=== PATIENT | female | born 1985 | race Caucasian/White ===

== ENCOUNTER 2016-09-25 19:14 | Emergency (ER) | payer BC ==
--- NOTE | 2016-09-25 21:11 | ED ORDER SUMMARY ---
..... Patient: CY CURRAN OrderSheet [facility] VisitID: [id number] [address] [place] [address] 31y, F Registration Date/Time: 09/25/2016 ORDER SHEET Weight: 117.9 kg (stated) Allergies: No Known Drug Allergy GENERAL ORDERS: MEDICATION ORDERS: Vistaril PO 100 mg (NOW) (20:40 09/25/2016 EKoroleva P.A.-C) (20:49 EInderbitzen R.N.) Phenergan PO 12.5 mg (HIGH ALERT MEDICATION, NOW) (20:40 09/25/2016 EKoroleva P.A.-C) (Cancelled: Other20:43 EKoroleva P.A.-C) Tylenol PO 650 mg (NOW) (20:40 09/25/2016 EKoroleva P.A.-C) (20:49 EInderbitzen R.N.) Phenergan PO 25 mg (HIGH ALERT MEDICATION, NOW) (20:43 09/25/2016 EKoroleva P.A.-C) (20:49 EInderbitzen R.N.) IV FLUIDS: ORDER SHEET NOTES: [Electronically signed by Nishi Baires R.N. (21:21 09/25/2016)] [Electronically signed by Kimberly Beatty P.A.-C (23:00 09/25/2016)] [Electronically locked/signed by Nishi Baires R.N. (21:21 09/25/2016)]
--- NOTE | 2016-09-25 21:11 | ED CLINICAL REPORT ---
Clinical Report - Physicians/Mid Levels [facility] [address] [place] [address] 09/25/2016 19:16 Patient: CY CURRAN Time Seen: 20:52 Sep 25 2016. Arrived- By private vehicle. Historian- patient. HISTORY OF PRESENT ILLNESS Is still present. Chief Complaint: paresthesias. 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 No preceding symptoms, blurred vision, photophobia or numbness. (prior to arrival, patient reports a paresthesias sensation that started her posterior, now is generalized, however the symptoms are improving gradually. She has no pain. She has not had any recent illness trauma. Denies any nausea or vomiting. Denies any neck pain. Denies any emesis. Denies history of similar, may be related to anxiety. No new medications.). REVIEW OF SYSTEMS No fever, muscle aches, sinus pressure, sore throat or head injury. No abdominal pain, diarrhea or skin rash. All systems otherwise negative, except as recorded above. ADDITIONAL NOTES The nursing notes have been reviewed. PHYSICAL EXAM Vital Signs: 09/25/2016 19:52 BP: 179/79. HR: 80. RR: 16. O2 saturation: 100%. Temp: 98.4 F. Appearance: Alert. Eyes: Pupils equal, round and reactive to light. Eyes normal inspection. Neck: Normal inspection. CVS: Normal heart rate and rhythm. Heart sounds normal. Respiratory: No respiratory distress. Breath sounds normal. No decreased air movement or rales. Abdomen: Soft and nontender. Back: Normal inspection. Neuro: Cranial nerves normal (as tested). No cerebellar findings. No motor deficit. No sensory deficit. PROGRESS AND PROCEDURES Course of Care: Patient has no pain, at this time differential is broad, or meningitis and intracranial hemorrhage is less suspicious asshe has paresthesias that are very generalized, with no other associated symptoms. She has no headache. Negative neuro exam, may be related to anxiety. 09/25/2016 21:15 BP: 152/91. HR: 73. RR: 16. O2 saturation: 100%. Temp: 98.2 F. Patient is stable. Patient/family counseled. Disposition: Discharged. Condition: good. CLINICAL IMPRESSION Paresthesia Hypertension. INSTRUCTIONS Do not work tomorrow, for. (this may be related to anxiety). Prescription Medications: Vistaril 100 mg: take 1 orally every 8 hours for 3 days as needed for itching. Dispense ten (10). No refill. Substitution is permissible. Follow-up: Follow up with your doctor. (Electronically signed by Kimberly Beatty P.A.-C 09/25/2016 23:00)
--- NOTE | 2016-09-25 21:11 | ED NURSING NOTES ---
Clinical Report - Nurses [facility] [address] [place] [address] 09/25/2016 19:16 Patient: CY CURRAN TRIAGE Triage time 19:52 Sep 25 2016. Acuity: LEVEL 4. Chief Complaint: (felt funny and now tingling on back of head). 19:52 09/25/16. TALIA COMA SCORE: [place] Coma Scale: 15- eyes open spontaneously (4); best verbal response- oriented x 4 (5); best motor response- obeys commands (6). --19:56 Nishi Baires R.N. 19:52 09/25/16. BP: 179/79. HR: 80. RR: 16. O2 saturation: 100%. Temp: 98.4 F. Pain level now 0/10. --19:56 Nishi Baires R.N. Weight: 117.9 kg stated. Height/Length: 63 inches Per Patient. BMI: 46.1. --19:52 Nishi Baires R.N. Medications None. --19:53 Nishi Baires R.N. Medication/allergy information source: the patient. --19:56 Nishi Baires R.N. Allergies No Known Drug Allergy. --19:54 Nishi Baires R.N. History Arrived by private vehicle. Historian: patient. Accompanied by family. This started just prior to arrival. 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 PAST MEDICAL HX: Last normal menstrual period- 10 days ago. Has not received pneumonia vaccine or seasonal influenza immunization. SOCIAL HX: Former smoker. Occasional alcohol use. History of drug use: marijuana. No infectious disease exposure. ABUSE ASSESSMENT: No report of abuse. SELF HARM ASSESSMENT: A self harm assessment was performed. The patient answered "no" to the question "Have you recently felt down, depressed, or hopeless?", "Have you noticed less interest or pleasure in doing things?", "Do you have thoughts of harming or killing yourself?", "Are you here because you tried to hurt yourself?", "Have you ever tried to hurt yourself before today?", "Have you recently had thoughts about harming or killing others?" and "Do you have any dangerous items in your possession?". NUTRITIONAL RISK ASSESSMENT: The nutritional risk assessment revealed no deficiencies. FUNCTIONAL ASSESSMENT: Functional assessment: no impairments noted. LEARNING NEEDS ASSESSMENT: The learning needs assessment revealed no barriers. SKIN INTEGRITY ASSESSMENT: Skin integrity risk assessment completed. No skin integrity risk identified. --19:56 Nishi Baires R.N. PROBLEMS: no known problems. ADDITIONAL SURGERIES: no known surgeries. Interventions ID band on patient. --19:56 Nishi Baires R.N. PHYSICAL ASSESSMENT 19:52 09/25/16. Ambulatory to room. GENERAL / NEURO / PSYCH: Alert. Oriented X 4. HEENT: Pupils equal, round and reactive to light. Mucous membranes are pink. RESPIRATORY: Breath sounds within normal limits. CVS: Normal sinus rhythm noted. GI / : Abdomen soft. SKIN: Skin intact. Skin is warm and dry. --21:20 Nishi Baires R.N. NURSING PROGRESS NOTES 19:52 09/25/16. The initial plan of care for this patient has been created This plan of care was discussed with the patient. Patient gowned. Reassurance given. Patient identifiers checked. Call light placed in reach. Side rails up x 1. Bed placed in lowest position. Brakes of bed on. Patient ready for evaluation. --21:21 Nishi Baires R.N. 20:47 09/25/2016 Vistaril (HydrOXYzine Pamoate) PO Capsules 100 mg given. Allergies verified, confirmed 5 rights and sedative warning given to the patient. --20:49 Nishi Baires R.N. 20:47 09/25/2016 Tylenol (Acetaminophen) PO Tablets 650 mg given. Allergies verified and confirmed 5 rights. --20:49 Nishi Baires R.N. 20:47 09/25/2016 Phenergan (Promethazine HCl) PO Tablets 25 mg given. Allergies verified, confirmed 5 rights and sedative warning given to the patient. --20:49 Nishi Baires R.N. DISPOSITION / DISCHARGE 21:15 09/25/16. Condition at departure: improved and stable. The goals identified in the patient's plan of care were met. No learning barriers present. Discharge instructions provided and reviewed with the patient. Reviewed medication(s) side effects, precautions, dosing and course information. Prescription(s) given to the patient. Reviewed referral to a primary care physician for followup. The patient was discharged home and accompanied by family. She left the Emergency Department ambulatory and via private vehicle. Family member driving. FALL RISK ASSESSMENT: Fall risk assessment completed. No fall risk identified. --21:19 Nishi Baires R.N. 21:15 09/25/16. BP: 152/91. HR: 73. RR: 16. O2 saturation: 100%. Temp: 98.2 F. Pain level now 0/10. --21:19 Nishi Baires R.N. Departure time: 21:Sep 25 2016. --21:19 Nishi Baires R.N. Locked/Released at 09/25/2016 21:21 by Nishi Baires R.N.
--- NOTE | 2016-09-25 21:11 | ED NURSING NOTES ---
Clinical Report - Nurses [facility] [address] [place] [address] 09/25/2016 19:16 Patient: CY CURRAN TRIAGE Triage time 19:52 Sep 25 2016. Acuity: LEVEL 4. Chief Complaint: (felt funny and now tingling on back of head). 19:52 09/25/16. TALIA COMA SCORE: [place] Coma Scale: 15- eyes open spontaneously (4); best verbal response- oriented x 4 (5); best motor response- obeys commands (6). --19:56 Nishi Baires R.N. 19:52 09/25/16. BP: 179/79. HR: 80. RR: 16. O2 saturation: 100%. Temp: 98.4 F. Pain level now 0/10. --19:56 Nishi Baires R.N. Weight: 117.9 kg stated. Height/Length: 63 inches Per Patient. BMI: 46.1. --19:52 Nishi Baires R.N. Medications None. --19:53 Nishi Baires R.N. Medication/allergy information source: the patient. --19:56 Nishi Baires R.N. Allergies No Known Drug Allergy. --19:54 Nishi Baires R.N. History Arrived by private vehicle. Historian: patient. Accompanied by family. This started just prior to arrival. 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 PAST MEDICAL HX: Last normal menstrual period- 10 days ago. Has not received pneumonia vaccine or seasonal influenza immunization. SOCIAL HX: Former smoker. Occasional alcohol use. History of drug use: marijuana. No infectious disease exposure. ABUSE ASSESSMENT: No report of abuse. SELF HARM ASSESSMENT: A self harm assessment was performed. The patient answered "no" to the question "Have you recently felt down, depressed, or hopeless?", "Have you noticed less interest or pleasure in doing things?", "Do you have thoughts of harming or killing yourself?", "Are you here because you tried to hurt yourself?", "Have you ever tried to hurt yourself before today?", "Have you recently had thoughts about harming or killing others?" and "Do you have any dangerous items in your possession?". NUTRITIONAL RISK ASSESSMENT: The nutritional risk assessment revealed no deficiencies. FUNCTIONAL ASSESSMENT: Functional assessment: no impairments noted. LEARNING NEEDS ASSESSMENT: The learning needs assessment revealed no barriers. SKIN INTEGRITY ASSESSMENT: Skin integrity risk assessment completed. No skin integrity risk identified. --19:56 Nishi Baires R.N. PROBLEMS: no known problems. ADDITIONAL SURGERIES: no known surgeries. Interventions ID band on patient. --19:56 Nishi Baires R.N. PHYSICAL ASSESSMENT 19:52 09/25/16. Ambulatory to room. GENERAL / NEURO / PSYCH: Alert. Oriented X 4. HEENT: Pupils equal, round and reactive to light. Mucous membranes are pink. RESPIRATORY: Breath sounds within normal limits. CVS: Normal sinus rhythm noted. GI / : Abdomen soft. SKIN: Skin intact. Skin is warm and dry. --21:20 Nishi Baires R.N. NURSING PROGRESS NOTES 19:52 09/25/16. The initial plan of care for this patient has been created This plan of care was discussed with the patient. Patient gowned. Reassurance given. Patient identifiers checked. Call light placed in reach. Side rails up x 1. Bed placed in lowest position. Brakes of bed on. Patient ready for evaluation. --21:21 Nishi Baires R.N. 20:47 09/25/2016 Vistaril (HydrOXYzine Pamoate) PO Capsules 100 mg given. Allergies verified, confirmed 5 rights and sedative warning given to the patient. --20:49 Nishi Baires R.N. 20:47 09/25/2016 Tylenol (Acetaminophen) PO Tablets 650 mg given. Allergies verified and confirmed 5 rights. --20:49 Nishi Baires R.N. 20:47 09/25/2016 Phenergan (Promethazine HCl) PO Tablets 25 mg given. Allergies verified, confirmed 5 rights and sedative warning given to the patient. --20:49 Nishi Baires R.N. DISPOSITION / DISCHARGE 21:15 09/25/16. Condition at departure: improved and stable. The goals identified in the patient's plan of care were met. No learning barriers present. Discharge instructions provided and reviewed with the patient. Reviewed medication(s) side effects, precautions, dosing and course information. Prescription(s) given to the patient. Reviewed referral to a primary care physician for followup. The patient was discharged home and accompanied by family. She left the Emergency Department ambulatory and via private vehicle. Family member driving. FALL RISK ASSESSMENT: Fall risk assessment completed. No fall risk identified. --21:19 Nishi Baires R.N. 21:15 09/25/16. BP: 152/91. HR: 73. RR: 16. O2 saturation: 100%. Temp: 98.2 F. Pain level now 0/10. --21:19 Nishi Baires R.N. Departure time: 21:Sep 25 2016. --21:19 Nishi Baires R.N. Locked/Released at 09/25/2016 21:21 by Nishi Baires R.N.
--- NOTE | 2016-09-25 21:11 | ED ORDER SUMMARY ---
..... Patient: CY CURRAN OrderSheet [facility] VisitID: [id number] [address] [place] [address] 31y, F Registration Date/Time: 09/25/2016 ORDER SHEET Weight: 117.9 kg (stated) Allergies: No Known Drug Allergy GENERAL ORDERS: MEDICATION ORDERS: Vistaril PO 100 mg (NOW) (20:40 09/25/2016 EKoroleva P.A.-C) (20:49 EInderbitzen R.N.) Phenergan PO 12.5 mg (HIGH ALERT MEDICATION, NOW) (20:40 09/25/2016 EKoroleva P.A.-C) (Cancelled: Other20:43 EKoroleva P.A.-C) Tylenol PO 650 mg (NOW) (20:40 09/25/2016 EKoroleva P.A.-C) (20:49 EInderbitzen R.N.) Phenergan PO 25 mg (HIGH ALERT MEDICATION, NOW) (20:43 09/25/2016 EKoroleva P.A.-C) (20:49 EInderbitzen R.N.) IV FLUIDS: ORDER SHEET NOTES: [Electronically signed by Nishi Baires R.N. (21:21 09/25/2016)] [Electronically signed by Kimberly Beatty P.A.-C (23:00 09/25/2016)] [Electronically locked/signed by Nishi Baires R.N. (21:21 09/25/2016)]
--- NOTE | 2016-09-25 21:11 | ED CLINICAL REPORT ---
Clinical Report - Physicians/Mid Levels [facility] [address] [place] [address] 09/25/2016 19:16 Patient: CY CURRAN Time Seen: 20:52 Sep 25 2016. Arrived- By private vehicle. Historian- patient. HISTORY OF PRESENT ILLNESS Is still present. Chief Complaint: paresthesias. 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 No preceding symptoms, blurred vision, photophobia or numbness. (prior to arrival, patient reports a paresthesias sensation that started her posterior, now is generalized, however the symptoms are improving gradually. She has no pain. She has not had any recent illness trauma. Denies any nausea or vomiting. Denies any neck pain. Denies any emesis. Denies history of similar, may be related to anxiety. No new medications.). REVIEW OF SYSTEMS No fever, muscle aches, sinus pressure, sore throat or head injury. No abdominal pain, diarrhea or skin rash. All systems otherwise negative, except as recorded above. ADDITIONAL NOTES The nursing notes have been reviewed. PHYSICAL EXAM Vital Signs: 09/25/2016 19:52 BP: 179/79. HR: 80. RR: 16. O2 saturation: 100%. Temp: 98.4 F. Appearance: Alert. Eyes: Pupils equal, round and reactive to light. Eyes normal inspection. Neck: Normal inspection. CVS: Normal heart rate and rhythm. Heart sounds normal. Respiratory: No respiratory distress. Breath sounds normal. No decreased air movement or rales. Abdomen: Soft and nontender. Back: Normal inspection. Neuro: Cranial nerves normal (as tested). No cerebellar findings. No motor deficit. No sensory deficit. PROGRESS AND PROCEDURES Course of Care: Patient has no pain, at this time differential is broad, or meningitis and intracranial hemorrhage is less suspicious asshe has paresthesias that are very generalized, with no other associated symptoms. She has no headache. Negative neuro exam, may be related to anxiety. 09/25/2016 21:15 BP: 152/91. HR: 73. RR: 16. O2 saturation: 100%. Temp: 98.2 F. Patient is stable. Patient/family counseled. Disposition: Discharged. Condition: good. CLINICAL IMPRESSION Paresthesia Hypertension. INSTRUCTIONS Do not work tomorrow, for. (this may be related to anxiety). Prescription Medications: Vistaril 100 mg: take 1 orally every 8 hours for 3 days as needed for itching. Dispense ten (10). No refill. Substitution is permissible. Follow-up: Follow up with your doctor. (Electronically signed by Kimberly Beatty P.A.-C 09/25/2016 23:00)
--- NOTE | 2016-09-25 23:01 | ED MAR SUMMARY ---
..... Medication Administration Record [facility] [address] [place] [address] Patient: CY CURRAN Visit ID: [id number] 31y, F Weight: 117.9 kg Height/Length: 63 in BMI: 46.1 ALLERGIES: No Known Drug Allergy Given 20:47 09/25/2016 Nishi Baires R.N. Medication Administered: VISTARIL [PO] (HYDROXYZINE PAMOATE), Dose: 100 mg Capsules PO. Medication Ordered: Vistaril PO 100 mg (NOW). Given 20:47 09/25/2016 Nishi Baires R.N. Medication Administered: TYLENOL [PO] (ACETAMINOPHEN), Dose: 650 mg Tablets PO. Medication Ordered: Tylenol PO 650 mg (NOW). Given 20:09/25/2016 Nishi Baires R.N. Medication Administered: PHENERGAN [PO] (PROMETHAZINE HCL), Dose: 25 mg Tablets PO. Medication Ordered: Phenergan PO 25 mg (HIGH ALERT MEDICATION, NOW).
--- NOTE | 2016-09-25 23:01 | ED MED RECONCILIATION SUMMARY ---
Patient: CY CURRAN Medication Reconciliation Report [facility] VisitID: [id number] [address] [place] [address] 31y, F Registration Date/Time: 09/25/2016 Weight: 117.9 kg Height/Length: 63 in. BMI: 46.1 ALLERGIES: No Known Drug Allergy The patient's Home Medications are listed below: NONE. The source(s) of the original Home Medication information: patient The following Medications were given to the patient in the Emergency Department: Vistaril [PO] PO 100 mg, administered: 09/25/2016 8:47:00 PM Tylenol [PO] PO 650 mg, administered: 09/25/2016 8:47:00 PM Phenergan [PO] PO 25 mg, administered: 09/25/2016 8:47:00 PM The following Medications were prescribed to the patient: Vistaril 100 mg: take 1 orally every 8 hours for 3 days as needed for itching. Dispense ten (10). No refill. Substitution is permissible. -- Kimberly Beatty P.A.-C
--- NOTE | 2016-09-25 23:01 | ED MED RECONCILIATION SUMMARY ---
Patient: CY CURRAN Medication Reconciliation Report [facility] VisitID: [id number] [address] [place] [address] 31y, F Registration Date/Time: 09/25/2016 Weight: 117.9 kg Height/Length: 63 in. BMI: 46.1 ALLERGIES: No Known Drug Allergy The patient's Home Medications are listed below: NONE. The source(s) of the original Home Medication information: patient The following Medications were given to the patient in the Emergency Department: Vistaril [PO] PO 100 mg, administered: 09/25/2016 8:47:00 PM Tylenol [PO] PO 650 mg, administered: 09/25/2016 8:47:00 PM Phenergan [PO] PO 25 mg, administered: 09/25/2016 8:47:00 PM The following Medications were prescribed to the patient: Vistaril 100 mg: take 1 orally every 8 hours for 3 days as needed for itching. Dispense ten (10). No refill. Substitution is permissible. -- Kimberly Beatty P.A.-C
--- NOTE | 2016-09-25 23:01 | ED DISCHARGE INSTRUCTIONS ---
Patient: CY CURRAN General Instructions [facility] VisitID: [id number] [place] [address] 31y, F Registration Date/Time: 09/25/2016 Paresthesia Hypertension. INSTRUCTIONS Do not work tomorrow, for. (this may be related to anxiety). Prescription Medications: Vistaril 100 mg: take 1 orally every 8 hours for 3 days as needed for itching. Dispense ten (10). No refill. Substitution is permissible. Follow-up: Follow up with your doctor. ADDITIONAL INFORMATION Paraesthesias Paraesthesia refers to a burning or prickling sensation that is sometimes felt in the hands, arms, legs or feet. It can also occur in other parts of the body. It can also feel like tingling or numbness, skin crawling or itching.The sensation is usually painless. Most people have experienced pins and needles. This feeling happens when legs have been crossed for too long and pressure is placed on a nerve. This is a temporary paraesthesia. It quickly goes away once the pressure is relieved. There are many possible causes for chronic paraesthesias. These include such disorders as stroke, herniated disk (pressing on a nerve), trapped nerve in the shoulder, elbow or wrist (such as carpal tunnel syndrome), vitamin deficiencies or even certain medicines. Laboratory tests are needed to make an accurate diagnosis. These tests may include blood tests, X-ray, CT (computerized tomography) scan or a muscle test (electromyography).Depending on the cause, treatment may include physical therapy. Home Care: Do not make any changes to your medicines without advice from your doctor. If vitamins have been prescribed, remember to take them daily at the recommended dose. Because of a decrease in feeling, a numb hand or foot may be more prone to injury. Take care to protect these areas from cuts, bumps, bruises, gomez or other injury. Keep your nails trimmed and wash your hands and feet often. Wear shoes that fit well to avoid pressure points, blisters and ulcers. Look at your hands and feet carefully (including the soles of your feet and between your toes) at least once a week and notify your doctor of any open wounds or signs of infection. Follow Up with your doctor or as advised by our staff. You may need further testing to determine the exact cause of your paraesthesia. [NOTE: If blood tests, X-ray, CT scan or electromyography were done, specialists will review them. You will be notified of any new findings that may affect your care.] Get Prompt Medical Attention if any of the following occur: Numbness or weakness of the face, one arm or one leg Slurred speech, confusion, trouble speaking, walking or seeing Severe headache, fainting spell, dizziness or seizure Chest, arm, neck or upper back pain Loss of bladder or bowel control Open wound with redness, swelling or pus You have been given the following additional information: Paraesthesias Do not work tomorrow, for. (Electronically signed by Kimberly Beatty P.A.-C 09/25/2016 23:00)
--- NOTE | 2016-09-25 23:01 | ED MAR SUMMARY ---
..... Medication Administration Record [facility] [address] [place] [address] Patient: CY CURRAN Visit ID: [id number] 31y, F Weight: 117.9 kg Height/Length: 63 in BMI: 46.1 ALLERGIES: No Known Drug Allergy Given 20:47 09/25/2016 Nishi Baires R.N. Medication Administered: VISTARIL [PO] (HYDROXYZINE PAMOATE), Dose: 100 mg Capsules PO. Medication Ordered: Vistaril PO 100 mg (NOW). Given 20:47 09/25/2016 Nishi Baires R.N. Medication Administered: TYLENOL [PO] (ACETAMINOPHEN), Dose: 650 mg Tablets PO. Medication Ordered: Tylenol PO 650 mg (NOW). Given 20:09/25/2016 Nishi Baires R.N. Medication Administered: PHENERGAN [PO] (PROMETHAZINE HCL), Dose: 25 mg Tablets PO. Medication Ordered: Phenergan PO 25 mg (HIGH ALERT MEDICATION, NOW).
== END 2016-09-25 22:37 | disposition home or self-care (01) ==
LOC: ED SRH 19:14
DX: R20.2 Paresthesia of skin (principal); I10 Essential (primary) hypertension; Z87.891 Personal history of nicotine dependence